=== PATIENT | male | born 1970 | race Caucasian/White ===

== ENCOUNTER 2023-02-25 13:59 | Outpatient (CLI) | payer BC, SELFPAY | END 2023-02-25 14:00 | disposition home or self-care (01) | LOC: LKVREF 14:02 | PROVIDERS: PCP Family Medicine; Visit Provider Family Medicine | DX: M10.9 Gout, unspecified (principal) | CPT/HCPCS: 84550 ==

== ENCOUNTER 2023-08-13 19:47 | Outpatient (CLI) | payer BC, SELFPAY | END 2023-08-13 19:48 | disposition home or self-care (01) | PROVIDERS: Visit Provider Internal Medicine | DX: G47.33 Obstructive sleep apnea (adult) (pediatric) (principal) | CPT/HCPCS: 95811 ==